=== PATIENT | male | born 1990 | race Caucasian/White ===

== ENCOUNTER 2016-11-04 16:08 | Emergency (ER) | payer SELFPAY ==
--- NOTE | 2016-11-04 16:27 | PDOC ---
History of Present Illness - General Chief Complaint: Pain, Acute Stated Complaint: ABD PAIN Time Seen by Provider: 11/04/16 16:26 History Source: Patient Exam Limitations: No Limitations - History of Present Illness Initial Comments: 11/04/16 17:47 Patient is a 26-year-old male with no past medical history presents to the emergency department today by ambulance with a chief complaint of abdominal pain and vomiting. Patient states that his vomiting started approximately 6 AM this morning. He states that he has been unable to keep anything down today. He tried smoking marijuana to see if it would help his symptoms; however, he was still vomiting after smoking. His last meal was yesterday at dinner time. He ate spaghetti, cereal, and TV dinner chicken lissette russell. He tried taking Zofran and Pepcid today with no relief as they were oral medications. He threw them all back up. He is now complaining of epigastric pain that does not radiate. The pain is made worse every time he takes a deep breath The pain is currently a 10 out of 10. Denies fevers, chills, chest pain, chest tightness, shortness of breath, constipation, diarrhea, recent travel, camping, recent antibiotic use. Past History - Travel Traveled outside of the country in the last 30 days: No Close contact w/someone who was outside of country & ill: No - Past Medical History Allergies/Adverse Reactions: Allergies Allergy/AdvReac Type Severity Reaction Status Date / Time amoxicillin [Amoxicillin] Allergy Intermediate Hives Verified 07/30/14 08:35 erythromycin base Allergy Mild Verified 07/30/14 08:35 [Erythromycin Base] Penicillins Allergy Mild Verified 07/30/14 08:35 Home Medications: Ambulatory Orders Omeprazole [Prilosec (RX)] 20 mg PO DAILY #30 capsule 07/30/14 Other medical history: denies any medical history. - Immunization History Immunization Up to Date: Yes - Psycho/Social/Smoking Cessation Hx Anxiety: No Suicidal Ideation: No Smoking Status: No Smoking History: Current every day smoker Have you smoked in the past 12 months: Yes Number of Cigarettes Smoked Daily: 4 Information on smoking cessation initiated: No 'Breaking Loose' booklet given: 03/22/13 Hx Alcohol Use: No Drug/Substance Use Hx: Yes (weed today) Substance Use Type: None Review of Systems - Review of Systems Constitutional: No: Fever, Malaise, Weakness Respiratory: No: Cough, Shortness of Breath, Wheezing Cardiac (ROS): No: Chest Pain, Lightheadedness, Palpitations, Chest Tightness ABD/GI: Yes: Nausea, Vomiting, Abdominal cramping. No: Constipated, Diarrhea : No: Burning, Dysuria, Frequency, Flank Pain Neurological: No: Headache, Numbness, Paresthesia, Tremors, Weakness All Other Systems: Reviewed and Negative *Physical Exam - Vital Signs Last Vital Signs Temp Pulse Resp BP Pulse Ox 98.6 F 68 18 171/106 95 11/04/16 16:15 11/04/16 16:15 11/04/16 16:15 11/04/16 16:15 11/04/16 16:15 - Physical Exam Comments: 11/04/16 17:50 GENERAL: Well developed, well nourished. AAOx3. Mild distress d/t abdominal pain. Dry- heaving HEENT: Normocephalic, atraumatic. PERRLA, EOMI. No conjunctival pallor. Sclera are non- icteric. Moist mucous membranes. Oropharynx is clear. NECK: Supple. Full ROM. No JVD. Carotid pulses 2+ and symmetric, without bruits. No thyromegaly. No lymphadenopathy. CARDIOVASCULAR: Regular rate and rhythm. No murmurs, rubs, or gallops. Distal pulses are 2+ and symmetric. PULMONARY: No evidence of respiratory distress. Lungs clear to auscultation bilaterally. No wheezing, rales or rhonchi. ABDOMINAL: Diffuse TTP worse at the epigastric region. Soft. Non-distended. No rebound or guarding. No organomegaly. Normoactive bowel sounds. MUSCULOSKELETAL Normal range of motion at all joints. No bony deformities or tenderness. No CVA tenderness. EXTREMITIES: No cyanosis. No clubbing. No edema. No calf tenderness. SKIN: Warm and dry. Normal capillary refill. No rashes. No jaundice. NEUROLOGICAL: Alert, awake, appropriate. Cranial nerves 2-12 intact. No deficits to light touch and temperature in face, upper extremities and lower extremities. No motor deficits in the in face, upper extremities and lower extremities. Normoreflexic in the upper and lower extremities. Normal speech. Toes are down- going bilaterally. Gait is normal without ataxia. PSYCHIATRIC: Cooperative. Good eye contact. Appropriate mood and affect. ED Treatment Course - LABORATORY CBC & Chemistry Diagram: 11/04/16 17:00 11/04/16 17:00 Medical Decision Making - Medical Decision Making 11/04/16 17:52 Patient is a 26-year-old male with no past medical history presents to the emergency department today by ambulance with a chief complaint of abdominal pain and vomiting. Differential diagnosis includes but not limited to cyclic vomiting due to marijuana use, viral illness, gallstones/cholecystitis, or pancreatitis. 1.CBC, CMP, PT/INR, lipase cardiac labs, UA 2.EKG 3. IV fluids, IV Zofran, IV Pepcid, morphine IV 4.reevaluate 11/04/16 17:59 Patient is still complaining of nausea will add 10 mg of Reglan at this time. Reevaluate 11/04/16 18:26 Pt. still complaining of pain. Will give IV toradol at this time. 11/04/16 18:47 Pt. still complaining of some pain and nausea. WBC is elevated to 13, however given in the setting of vomiting since early this morning and lack of focal tenderness, most likely elevated d/t cyclical vomiting. Will try Ativan at this time. Family is requesting CT scan at this time. Discussed how his lab work is normal and how the pain is probably related to the vomiting. Pt. has never had a CT scan. Will order scan at this time. 11/04/16 19:00 Sign out given to Valeria Yanez FOIL CUTTER. Will follow Scan and PO trial
[2016-11-04 16:30] VITALS: BMI 26.6
[2016-11-04] MEDS ORDERED: morphine CARPU-JECT 4 MG/1 ML DISP.SYRIN IVPUSH ONE (16:34)
[2016-11-04] MEDS ORDERED: SODIUM CHLORIDE 1,000 ML IV STA (16:34)
[2016-11-04] MEDS ORDERED: ONDANSETRON 4 MG/2 ML VIAL IVPUSH ONE (16:34)
[2016-11-04] MEDS ORDERED: FAMOTIDINE 20 MG/50 ML IVPB 50 ML IVPB ONE ×2 (16:35→16:41)
[2016-11-04] MEDS ORDERED: ONDANSETRON 4 MG/2 ML VIAL ONE (16:40)
[2016-11-04] MEDS ORDERED: morphine CARPU-JECT 4 MG/1 ML DISP.SYRIN ONE (16:40)
[2016-11-04 17:05] LABS: MCH 27.5 pg (25.7-33.7); MCHC 33.2 g/dl (32.0-35.9); MEAN CELL VOLUME 82.7 fl (80-96); MEAN PLT VOLUME 9.6 fl (7.5-11.1); NEUTROPHILS 88.8 % (42.8-82.8); PLATELET COUNT 260 K/MM3 (134-434)
[2016-11-04] MEDS ORDERED: METOCLOPRAMIDE HCL INJECTION 10 MG/2 ML VIAL IVPUSH ONE (17:15)
[2016-11-04] MEDS ORDERED: METOCLOPRAMIDE HCL INJECTION 10 MG/2 ML VIAL ONE (17:16)
[2016-11-04 17:37] LABS: ALBUMIN 4.9 g/dl (3.4-5.0); ALK PHOS 83 U/L (45-117); ANION GAP 10 (8-16); CALCIUM 10.1 mg/dL (8.5-10.1); CO2 23 mmol/L (21-32); CPK 194 IU/L (39-308); CREATININE 0.8 mg/dL (0.7-1.3); GLUCOSE,RANDOM 113 mg/dL (74-106); SGOT/AST 17 U/L (15-37); SGPT/ALT 24 U/L (12-78); TOT PROT 8.4 g/dl (6.4-8.2)
[2016-11-04 17:38] LABS: TROPONIN I < 0.02 ng/ml (0.00-0.05)
[2016-11-04 17:43] LABS: INR 1.07 (0.82-1.09); PROTHROMBIN TIME (PATIENT) 11.8 SEC (9.98-11.88)
[2016-11-04 18:00] VITALS: TEMP 98
[2016-11-04] MEDS ORDERED: KETOROLAC TROMETHAMINE 30 MG/1 ML VIAL IVPUSH ONE (18:08)
[2016-11-04] MEDS ORDERED: KETOROLAC TROMETHAMINE 30 MG/1 ML VIAL ONE (18:09)
[2016-11-04] MEDS ORDERED: LORazepam 2 MG/ML SDV VIAL ONE (18:48)
--- NOTE | 2016-11-04 19:38 | PDOC ---
*Physical Exam - Vital Signs Last Vital Signs Temp Pulse Resp BP Pulse Ox 98.0 F 58 L 18 161/87 98 11/04/16 18:00 11/04/16 18:00 11/04/16 18:00 11/04/16 18:00 11/04/16 18:00 - Physical Exam Comments: 11/04/16 19:37 Sign-out received from outgoing ER provider Katharina. Pt interviewed and examined. Ancillary studies reviewed. Awaiting CT scan to r/o acute abdomen. 11/04/16 20:[address] Patient will be discharged to home per Dr. Martin. ED Treatment Course - LABORATORY CBC & Chemistry Diagram: 11/04/16 17:00 11/04/16 17:00 - ADDITIONAL ORDERS Additional order review: Laboratory Results 11/04/16 11/04/16 11/04/16 17:00 17:00 17:00 INR Sodium 138 Potassium 3.7 Chloride 105 Carbon Dioxide 23 Anion Gap 10 BUN 11 Creatinine 0.8 Creat Clearance w eGFR > 60 Random Glucose 113 H Calcium 10.1 Total Bilirubin 1.0 D AST 17 ALT 24 D Alkaline Phosphatase 83 Creatine Kinase 194 Creatine Kinase Index 0.5 CK-MB (CK-2) < 1.000 Troponin I < 0.02 Total Protein 8.4 H Albumin 4.9 D Lipase 84 11/04/16 17:00 INR 1.07 Sodium Potassium Chloride Carbon Dioxide Anion Gap BUN Creatinine Creat Clearance w eGFR Random Glucose Calcium Total Bilirubin AST ALT Alkaline Phosphatase Creatine Kinase Creatine Kinase Index CK-MB (CK-2) Troponin I Total Protein Albumin Lipase 11/04/16 17:00 RBC 5.38 MCV 82.7 MCHC 33.2 RDW 14.0 MPV 9.6 Neutrophils % 88.8 H D Lymphocytes % 7.5 L D Monocytes % 2.7 L Eosinophils % 0.0 D Basophils % 1.0 - Medications Given in the ED: ED Medications Discontinued Medications Generic Name Dose Route Start Last Admin Trade Name Freq PRN Reason Stop Dose Admin Famotidine/Sodium Chloride 50 mls @ 100 mls/hr 11/04/16 16:35 11/04/16 16:39 Pepcid 20 Mg Premixed Ivpb - IVPB 11/04/16 17:04 100 mls/hr ONCE ONE Administration Sodium Chloride 1,000 mls @ 1,000 mls/hr 11/04/16 16:34 11/04/16 16:39 Normal Saline - IV 11/04/16 17:33 1,000 mls/hr ASDIR STA Administration Ketorolac Tromethamine 30 mg 11/04/16 18:08 11/04/16 18:10 Toradol Injection - IVPUSH 11/04/16 18:09 30 mg ONCE ONE Administration Lorazepam 2 mg 11/04/16 18:44 11/04/16 18:47 Ativan Injection - IVPUSH 11/04/16 18:45 2 mg ONCE ONE Administration Metoclopramide HCl 10 mg 11/04/16 17:15 11/04/16 17:16 Reglan Injection - IVPUSH 11/04/16 17:16 10 mg ONCE ONE Administration Morphine Sulfate 4 mg 11/04/16 16:34 11/04/16 16:39 Morphine Injection - IVPUSH 11/04/16 16:35 4 mg ONCE ONE Administration Ondansetron HCl 4 mg 11/04/16 16:34 11/04/16 16:39 Zofran Injection IVPUSH 11/04/16 16:35 4 mg ONCE ONE Administration *DC/Admit/Observation/Transfer Diagnosis at time of Disposition: Hyperemesis - Referrals Referrals: Vicente Post MD [Staff Physician] - - Patient Instructions Printed Discharge Instructions: Gastritis Additional Instructions: follow up with gastroeneterology , call Dr Post, see referral for phone number . return for persistant vomiting worsening pain or any concerns. you should avoid daily THC use.
[2016-11-04 19:39] VITALS: BP 141/62; PULSE 60
--- NOTE | 2016-11-04 19:57 | PDOC ---
*Physical Exam - Vital Signs Last Vital Signs Temp Pulse Resp BP Pulse Ox 98.0 F 60 17 141/62 100 11/04/16 18:00 11/04/16 19:38 11/04/16 19:38 11/04/16 19:38 11/04/16 19:38 - Physical Exam General Appearance: Yes: Nourished, Appropriately Dressed Neck: positive: Trachea midline Respiratory/Chest: positive: Chest Tender, Lungs Clear, Normal Breath Sounds Cardiovascular: positive: Regular Rhythm, Regular Rate, S1, S2. negative: Edema Gastrointestinal/Abdominal: positive: Normal Bowel Sounds, Flat, Soft. negative : Tender Musculoskeletal: positive: Normal Inspection. negative: CVA Tenderness Extremity: positive: Normal Capillary Refill Integumentary: positive: Normal Color, Dry, Warm Neurologic: positive: Fully Oriented, Alert, Normal Mood/Affect. 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 NML intact Heart Score/ECG Review #1 General ECG Interpretation: Sinus Rhythm, Normal Rate (51 incomplete RBBB), Normal Intervals, No acute ischemic changes - ECG Intrepretation Comment:: 11/04/16 20:08 RBBB, old comparison 07/26/14 ED Treatment Course - LABORATORY CBC & Chemistry Diagram: 11/04/16 17:00 11/04/16 17:00 - ADDITIONAL ORDERS Additional order review: Laboratory Results 11/04/16 11/04/16 11/04/16 17:00 17:00 17:00 INR Sodium 138 Potassium 3.7 Chloride 105 Carbon Dioxide 23 Anion Gap 10 BUN 11 Creatinine 0.8 Creat Clearance w eGFR > 60 Random Glucose 113 H Calcium 10.1 Total Bilirubin 1.0 D AST 17 ALT 24 D Alkaline Phosphatase 83 Creatine Kinase 194 Creatine Kinase Index 0.5 CK-MB (CK-2) < 1.000 Troponin I < 0.02 Total Protein 8.4 H Albumin 4.9 D Lipase 84 11/04/16 17:00 INR 1.07 Sodium Potassium Chloride Carbon Dioxide Anion Gap BUN Creatinine Creat Clearance w eGFR Random Glucose Calcium Total Bilirubin AST ALT Alkaline Phosphatase Creatine Kinase Creatine Kinase Index CK-MB (CK-2) Troponin I Total Protein Albumin Lipase 11/04/16 17:00 RBC 5.38 MCV 82.7 MCHC 33.2 RDW 14.0 MPV 9.6 Neutrophils % 88.8 H D Lymphocytes % 7.5 L D Monocytes % 2.7 L Eosinophils % 0.0 D Basophils % 1.0 - RADIOLOGY Radiology Studies Ordered: Category Date Time Status ABDOMEN & PELVIS CT WITH CONTR [CT] Stat CT Scan 11/04/16 19:09 Ordered - Medications Given in the ED: ED Medications Discontinued Medications Generic Name Dose Route Start Last Admin Trade Name Frejonelle PRN Reason Stop Dose Admin Famotidine/Sodium Chloride 50 mls @ 100 mls/hr 11/04/16 16:35 11/04/16 16:39 Pepcid 20 Mg Premixed Ivpb - IVPB 11/04/16 17:04 100 mls/hr ONCE ONE Administration Sodium Chloride 1,000 mls @ 1,000 mls/hr 11/04/16 16:34 11/04/16 16:39 Normal Saline - IV 11/04/16 17:33 1,000 mls/hr ASDIR STA Administration Ketorolac Tromethamine 30 mg 11/04/16 18:08 11/04/16 18:10 Toradol Injection - IVPUSH 11/04/16 18:09 30 mg ONCE ONE Administration Lorazepam 2 mg 11/04/16 18:44 11/04/16 18:47 Ativan Injection - IVPUSH 11/04/16 18:45 2 mg ONCE ONE Administration Metoclopramide HCl 10 mg 11/04/16 17:15 11/04/16 17:16 Reglan Injection - IVPUSH 11/04/16 17:16 10 mg ONCE ONE Administration Morphine Sulfate 4 mg 11/04/16 16:34 11/04/16 16:39 Morphine Injection - IVPUSH 11/04/16 16:35 4 mg ONCE ONE Administration Ondansetron HCl 4 mg 11/04/16 16:34 11/04/16 16:39 Zofran Injection IVPUSH 11/04/16 16:35 4 mg ONCE ONE Administration Medical Decision Making - Medical Decision Making 11/04/16 19:50 26 yo M with h/o emesis, multiple episodes today, h/o THC abuse ( daily) . was seen in conjunction with andrea Posadas, no f/c no sick contacts. states pain is upper abdomen. no other complaints. on exam pt resting comfortably. lungs clear heart regular. abd soft NT ND. ext wwp. no edema. plan : was to perform bedside us RUQ r/o cholelihtiaiss, lipase r/o pancreatitis , labs renal ultrasound. treat pain and antiemetics, antacid. reasess. 11/04/16 20:04 focused ED ultrasound RUQ, no stones, no wall edema. no wall thickening, negative sonographic marshall's CBD 3.5mm mm wall 1.8mm impression: normal gallbladder bilatera renal ultrasound performed no hydronephrosis, bladder full. impression: normal renal ultrasound. 11/04/16 20:09 pt feels improved. tolerate po drank some water. ginoenlty would not like to have CT scan. encouraged to return for worsening symtpoms. given GI referral and recommend prilosec or pepcid. extensive discussion with pt and pt family regarding concerns and followup. *DC/Admit/Observation/Transfer Diagnosis at time of Disposition: Hyperemesis - Discharge Dispostion Admit: No - Referrals Referrals: Vicente Post MD [Staff Physician] - - Patient Instructions Printed Discharge Instructions: Gastritis Additional Instructions: follow up with gastroeneterology , call Dr Post, see referral for phone number . return for persistant vomiting worsening pain or any concerns. you should avoid daily THC use.
--- NOTE | 2016-11-05 14:56 | EKG ---
Test Reason : Blood Pressure : / mmHG Vent. Rate : 051 BPM Atrial Rate : 051 BPM P-R Int : 130 ms QRS Dur : 110 ms QT Int : 430 ms P-R-T Axes : 055 064 062 degrees QTc Int : 396 ms SINUS BRADYCARDIA WITH SINUS ARRHYTHMIA INCOMPLETE RIGHT BUNDLE BRANCH BLOCK BORDERLINE ECG WHEN COMPARED WITH ECG OF 26-JUL-2014 19:46, NO SIGNIFICANT CHANGE WAS FOUND Confirmed by ILIR PATEL MD ([id number]) on 11/05/2016 2:55:31 PM Referred By: Confirmed By:ILIR PATEL MD
== END 2016-11-04 20:11 ==
LOC: JER 16:08
CPT/HCPCS: 36415; 80053; 82553; 83690; 84484; 85025; 85610; 93005; 93010; 99283-25

== ENCOUNTER 2016-12-25 23:49 | Emergency (ER) | payer OTHER ==
[2016-12-26 00:03] VITALS: BP 125/78; PULSE 86; TEMP 98.1; BMI 25.0
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
[2016-12-26] MEDS ORDERED: IBUPROFEN 600 MG TABLET (FP) PO ONE ×2 (04:12→04:19)
[2016-12-26] MEDS ORDERED: DIPHTH,PERTUSS(ACELL),TET 0.5 ML DISP.SYRIN IM ONE (04:15)
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
== END 2016-12-26 04:28 | disposition home or self-care (01) ==
LOC: JER 23:49
PROC: 3E0234Z Introduction of Serum, Toxoid and Vaccine into Muscle, Percutaneous Approach (ICD-10-PCS; principal; 2016-12-25)
DX: Z04.1 Encounter for examination and observation following transport accident (principal); G50.1 Atypical facial pain; M25.512 Pain in left shoulder; Z88.0 Allergy status to penicillin; Z88.1 Allergy status to other antibiotic agents
CPT/HCPCS: 70450-TC; 70486-TC; 71010-TC; 72125-TC; 73030-TC-LT; 99281-25

== ENCOUNTER 2016-12-28 20:12 | Emergency (ER) | payer OTHER ==
[2016-12-28 20:30] VITALS: BP 126/82; PULSE 56; TEMP 97.8; BMI 26.3
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
== END 2016-12-28 21:36 | disposition home or self-care (01) ==
LOC: SUPCPDRO 20:12 → JER 20:12
DX: R53.83 Other fatigue (principal); F17.210 Nicotine dependence, cigarettes, uncomplicated
CPT/HCPCS: 99281-25

== ENCOUNTER 2018-03-07 12:03 | Emergency (ER) | payer SELFPAY ==
[2018-03-07 12:13] VITALS: BMI 23.3
[2018-03-07] MEDS ORDERED: ACETAMINOPHEN 1000 MG/100 ML VIAL (NON FORMULARY) IVPB ONE (13:13)
[2018-03-07] MEDS ORDERED: PANTOPRAZOLE SODIUM 40 MG VIAL IVPUSH ONE (13:13)
--- NOTE | 2018-03-07 13:13 | PDOC ---
History of Present Illness - General Chief Complaint: Pain, Acute Stated Complaint: ABD PAIN Time Seen by Provider: 03/07/18 12:53 History Source: Patient, Spouse - History of Present Illness Travel History: No Initial Comments: 03/07/18 13:10 Patient is a 27 year old male with a PMHx of Gastritis (On H.Pylori Regimen) who was sent over by his PCP, Dr. Spencer due to severe abdominal pain since last week (03/04/18) associated with nausea and vomiting. Patient's reports on Wednesday (03/04) he went to [facility] and had sesame chicken. Afterwards, he went to his mothers house and started experiencing nausea and innumerable nonbloody nonbilious vomiting. Patient reports his last bowel movement was on (03/03). Patient describes the pain as epigastric, "severe," constant and nonradiating with a severity of 10/10. Otherwise, patient denies shortness of breath, chest pain, palpitations, diarrhea, constipation, loss of consciousness. Patient denies any NSAID use Patient denies any melena, hematochezia, hematemesis, hematuria, jaundice, autoimmune disorder, hepatitis. Patient has never seen a GI and denies any history of colonoscopy or EGD PMHx: Gastritis H.Pylori PSHx: Denies Social Hx: Lives with Denies alcohol use Denies drugs use Reports 5 cigarettes/ day Family Hx: Mother- Gastritis and HTN Allergies: Penicillins Erythromycin Past History - Travel Traveled outside of the country in the last 30 days: No Close contact w/someone who was outside of country & ill: No - Past Medical History Allergies/Adverse Reactions: Allergies Allergy/AdvReac Type Severity Reaction Status Date / Time amoxicillin [Amoxicillin] Allergy Intermediate Hives Verified 03/07/18 12:09 erythromycin base Allergy Mild Verified 03/07/18 12:09 [Erythromycin Base] Penicillins Allergy Mild Verified 03/07/18 12:09 Home Medications: Ambulatory Orders Famotidine [Pepcid -] 20 mg PO BID #30 tablet 03/07/18 Ondansetron [Zofran -] 4 mg PO DAILY PRN #10 tablet 03/07/18 Pantoprazole Sodium [Protonix -] 20 mg PO DAILY #7 tablet.ec 03/07/18 COPD: No GI Disorders: Yes - Immunization History Immunization Up to Date: Yes - Suicide/Smoking/Psychosocial Hx Smoking Status: No Smoking History: Current every day smoker Have you smoked in the past 12 months: Yes Number of Cigarettes Smoked Daily: 5 Information on smoking cessation initiated: No 'Breaking Loose' booklet given: 03/22/13 Hx Alcohol Use: No Drug/Substance Use Hx: No Substance Use Type: None Review of Systems - Review of Systems Able to Perform ROS?: Yes Is the patient limited Mongolian proficient: No Constitutional: No: Chills, Diaphoresis, Fever, Night Sweats, Weakness HEENTM: No: Nose Congestion Respiratory: No: Cough, Orthopnea, Shortness of Breath, SOB with Exertion, SOB at Rest, Wheezing, Productive cough, Hemoptysis Cardiac (ROS): No: Chest Pain, Edema, Irregular Heart Rate, Lightheadedness, Palpitations, Syncope, Chest Tightness ABD/GI: Yes: Constipated, Nausea, Vomiting, Other (Epigastric pain ) : No: Burning, Dysuria, Discharge, Flank Pain, Hematuria Musculoskeletal: No: Back Pain, Joint Pain Integumentary: No: Bruising, Dryness, Erythema Neurological: No: Numbness, Paresthesia, Seizure, Tingling, Tremors Psychiatric: No: Anxiety, Depression Endocrine: No: Flushing, Intolerance to Cold, Intolerance to Heat Hematologic/Lymphatic: No: Anemia, Easy Bruising, Bleeding Diathesis *Physical Exam - Vital Signs Last Vital Signs Temp Pulse Resp BP Pulse Ox 97.9 F 70 16 167/103 H 99 03/07/18 12:12 03/07/18 12:12 03/07/18 12:12 03/07/18 12:12 03/07/18 12:12 - Physical Exam General Appearance: Yes: Mild Distress (awak, alert, oriented x3 ) HEENT: positive: CRISTELA, Other (Dry mucous membranes ). negative: Pharyngeal Erythema, Tonsillar Exudate, Tonsillar Erythema, Rhinorrhea, Thrush Neck: positive: Trachea midline, Supple. negative: Lymphadenopathy (R), Lymphadenopathy (L) Respiratory/Chest: positive: Lungs Clear, Normal Breath Sounds. negative: Crackles, Rales, Rhonchi, Stridor, Wheezing Cardiovascular: positive: Regular Rhythm, Regular Rate. negative: Edema, JVD, Murmur Gastrointestinal/Abdominal: positive: Normal Bowel Sounds, Tender, Soft, Tenderness (upon palpation of epigastric region), Other ((-) Psoas sign, (-) obturator sign, (-) Rovsing's sign, (-) Garwood sign). negative: Distended, Guarding, Rebound, Hepatomegaly, Spleenomegaly Musculoskeletal: positive: Normal Inspection. negative: CVA Tenderness, CVA Tenderness (R), CVA Tenderness (L) Extremity: positive: Normal Capillary Refill, Normal Inspection, Normal Range of Motion. 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 Due to risk factors of gastritis, h.pylori, and initial symptoms after eating tajik food, differential Diagnosis include but not limited to gastroenteritis, gastritis, pancreatitis, obstruction. -CBC, CMP ,LACTIC ordered -Morphine 4mg -Pepcid and protonix -1L IV fluids 03/07/18 15:10 -Patients lab show Mild hyperkalemia and AST of 44 -Patient is sleeping comfortably and in no acute distress -Will hydrate with another 1L IV NS -Due to normal level lactic and no WBC, fevers, tachycardia or guarding. Will likely discharge patient home to follow up with PCP. 03/07/18 16:04 -Patient reports pain is much improved but still has nausea -Zofran 4mg IVP ordered and 1L of NS 03/07/18 16:32 -Patient reports improvement in pain and nausea after medication -Will discharge patient home to follow up with PCP and GI referral -Will prescribe Zofran, Pepcid, and protonix -Explained to patient that he should avoid dairy and spicy food. -Patient stable to go home *DC/Admit/Observation/Transfer Diagnosis at time of Disposition: Gastroenteritis Gastritis Qualifiers: Gastritis type: unspecified gastritis Chronicity: chronic Gastritis bleeding: without bleeding Qualified Code(s): K29.50 - Unspecified chronic gastritis without bleeding Hyperemesis Qualifiers: Vomiting type: unspecified Nausea presence: with nausea Qualified Code(s): R11.2 - Nausea with vomiting, unspecified - Discharge Dispostion Disposition: HOME Condition at time of disposition: Stable Decision to Admit order: No - Prescriptions Prescriptions: Famotidine [Pepcid -] 20 mg PO BID #30 tablet Ondansetron [Zofran -] 4 mg PO DAILY PRN #10 tablet PRN Reason: Nausea And/Or Vomiting Pantoprazole Sodium [Protonix -] 20 mg PO DAILY #7 tablet.ec - Referrals Referrals: Shekhar Sellers MD [Primary Care Provider] - Ric Varela DO [Staff Physician] - - Patient Instructions Additional Instructions: INSTRUCTIONS: You were seen in the ED for abdominal pain and vomiting. Labs were done and essentially unremarkable. You likely have infection of inflammation the abdomen for which you started antibiotics yesterday. You will need to continue taking these antibiotics prescribed to you by your primary care physician Please avoid and NSAID's such as motrin, aleve, or advil. If you experience pain, take Tylenol over the counter Avoid dairy for now as it may worsen your abdominal pain MEDICATIONS: -I will be prescribing you Pepcid and you should take it twice a day for two weeks to help with the abdominal pain -I will also prescribe you Protonix to take once a day for the abdominal pain -I will also prescribe Zofran to take for the nausea -Please continue taking your antibiotics prescribed to you by Dr. Spencer FOLLOW UPS: -Please follow up with your PCP this week -I will be referring you to a State Manager to further investigate your abdominal pain - Post Discharge Activity
[2018-03-07] MEDS ORDERED: PANTOPRAZOLE SODIUM 40 MG/100 ML BAG IVPB ONE (13:15)
[2018-03-07] MEDS ORDERED: ACETAMINOPHEN INJECTION 100 ML IVPB ONE (13:15)
[2018-03-07 13:16] LABS: BASO % 0.5 % (0-2.0); HEMATOCRIT 44.3 % (35.4-49); HEMOGLOBIN 15.4 GM/dL (11.7-16.9); LYMPH % 10.4 % (8-40); MCH 28.8 pg (25.7-33.7); MCHC 34.8 g/dl (32.0-35.9); MEAN CELL VOLUME 82.7 fl (80-96); MEAN PLT VOLUME 9.6 fl (7.5-11.1); MONO % 4.6 % (3.8-10.2); NEUT % 84.5 % (42.8-82.8); PLATELET COUNT 257 K/MM3 (134-434); RBC 5.36 M/mm3 (4.00-5.60); RDW 14.1 % (11.9-15.9); WHITE BLOOD COUNT 11.1 K/mm3 (4.0-10.0)
[2018-03-07] MEDS ORDERED: ONDANSETRON 4 MG/2 ML VIAL IVPUSH ONE ×2 (13:22→16:02)
[2018-03-07] MEDS ORDERED: morphine CARPU-JECT 4 MG/1 ML DISP.SYRIN IVPUSH ONE (13:22)
[2018-03-07] MEDS ORDERED: FAMOTIDINE 20 MG/50 ML IVPB 20 MG/50 ML MG IVPB ONE ×2 (13:22→13:29)
[2018-03-07] MEDS ORDERED: morphine SULFATE 4 MG/ML VIAL ONE (13:29)
[2018-03-07] MEDS ORDERED: ONDANSETRON 4 MG/2 ML VIAL ONE ×2 (13:41→16:15)
[2018-03-07 13:46] LABS: ALBUMIN 4.4 g/dl (3.4-5.0); ALK PHOS 67 U/L (45-117); ANION GAP 7 MMOL/L (8-16); BILIRUBIN,TOTAL 0.9 mg/dL (0.2-1); BLOOD UREA NITROGEN 16 mg/dL (7-18); CALCIUM 8.8 mg/dL (8.5-10.1); CHLORIDE 104 mmol/L (98-107); CO2 22 mmol/L (21-32); CREATININE 0.9 mg/dL (0.55-1.3); GLUCOSE,RANDOM 95 mg/dL (74-106); LIPASE 113 U/L (73-393); POTASSIUM 5.4 mmol/L (3.5-5.1); SGOT/AST 44 U/L (15-37); SGPT/ALT 24 U/L (13-61); SODIUM 133 mmol/L (136-145)
[2018-03-07 14:12] LABS: INR 1.07 (0.83-1.09); PROTHROMBIN TIME (PATIENT) 12.6 SEC (9.7-13.0)
[2018-03-07 14:15] LABS: ACTIVATED PTT 29.2 SECONDS (25.2-36.5)
--- NOTE | 2018-03-07 15:20 | PDOC ---
Attending Attestation - Resident Resident Name: Deb Swenson - ED Attending Attestation I have performed the following: I have examined & evaluated the patient, The case was reviewed & discussed with the resident, I agree w/resident's findings & plan - HPI HPI: 03/07/18 15:16 Healthy 27-year-old male with history of H. pylori diagnosed on endoscopy this year, status post treatment with presumably Prevpac for 3 weeks presents now with 3-4 days of worsening epigastric pain with intractable nausea/vomiting, nonbloody nonbilious and with otherwise normal bowel movements and no melena or bright red blood per rectum. No fevers or chills, no recent travel or antibiotics, the patient did have a large amount of dairy on Wednesday with some wine, also ate some Malay food but other members of the dinner are not ill. Denies any excessive NSAID use, excessive alcohol use, denies drugs/marijuana, does smoke cigarettes - Physicial Exam PE: 03/07/18 15:18 Vital signs within normal limits, afebrile Alert, in moderate distress secondary to abdominal pain, dry mucosa but no jaundice or pallor Heart is regular, lungs are clear Abdomen is soft/nondistended. Epigastric discomfort to palpation without guarding or rebound. No edema or rash - Medical Decision Making 03/07/18 15:19 Healthy 27-year-old male with history of H. pylori presents with epigastric pain and intractable vomiting, hemodynamically stable without peritoneal findings on examination. No evidence of bleeding, hesitation seems most consistent with gastritis, rule out biliary or pancreatic etiology. Labs EKG IV fluids, antiemetics, antacids Reassess 03/07/18 16:28 labs wnl, improved after meds, abd remains benign. antacid course, diet modification, GI f/u. understands return precautions Heart Score/ECG Review #1 ECG reviewed & interpreted by me at: 14:24 General ECG Interpretation: Sinus Rhythm, Normal Rate (55), Normal Intervals ( qtc 388, irbbb qrs 98), No acute ischemic changes
--- NOTE | 2018-03-07 15:39 | EKG ---
Test Reason : Blood Pressure : / mmHG Vent. Rate : 055 BPM Atrial Rate : 055 BPM P-R Int : 130 ms QRS Dur : 098 ms QT Int : 406 ms P-R-T Axes : 052 062 068 degrees QTc Int : 388 ms SINUS BRADYCARDIA INCOMPLETE RIGHT BUNDLE BRANCH BLOCK BORDERLINE ECG WHEN COMPARED WITH ECG OF 04-NOV-2016 16:44, NO SIGNIFICANT CHANGE WAS FOUND Confirmed by JON BOONE MD ([id number]) on 03/07/2018 3:38:53 PM Referred By: Confirmed By:JON BOONE MD
[2018-03-07] MEDS ORDERED: SODIUM CHLORIDE 1,000 ML IV STA (16:02)
[2018-03-07 17:35] VITALS: BP 145/78; PULSE 78; TEMP 98.7
== END 2018-03-07 17:35 | disposition home or self-care (01) ==
LOC: JER 12:03
PROC: 3E033NZ Introduction of Analgesics, Hypnotics, Sedatives into Peripheral Vein, Percutaneous Approach (ICD-10-PCS; principal; 2018-03-07)
PROC: 3E033GC Introduction of Other Therapeutic Substance into Peripheral Vein, Percutaneous Approach (ICD-10-PCS; 2018-03-07)
PROC: 3E0337Z Introduction of Electrolytic and Water Balance Substance into Peripheral Vein, Percutaneous Approach (ICD-10-PCS; 2018-03-07)
DX: K29.50 Unspecified chronic gastritis without bleeding (principal); R11.2 Nausea with vomiting, unspecified
CPT/HCPCS: 36415; 80053; 83605; 83690; 85025; 85610; 85730; 87040; 93005; 93010; 99283-25; J0131; J7030

== ENCOUNTER 2019-05-27 13:51 | Emergency (ER) | payer OTHER ==
[2019-05-27 14:01] VITALS: BP 121/64; PULSE 69; TEMP 97.9; BMI 25.8
[2019-05-27] MEDS ORDERED: IBUPROFEN 400 MG TABLET (FP) PO ONE ×2 (14:46→14:48)
--- NOTE | 2019-05-27 14:52 | PDOC ---
History of Present Illness - General Chief Complaint: Injury Stated Complaint: INJURY Time Seen by Provider: 05/27/19 14:04 History Source: Patient Exam Limitations: Clinical Condition - History of Present Illness Initial Comments: 05/27/19 14:54 Patient with no significant past medical history present with complaint of left ankle and proximal foot pain status post being run over by a forklift tire while at work today. 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 Patient reported increased pain with ambulation. Patient did not take anything for pain. Denies previous injury to ankle or foot Occurred: reports: just prior to arrival Past History - Past Medical History Allergies/Adverse Reactions: Allergies Allergy/AdvReac Type Severity Reaction Status Date / Time amoxicillin [Amoxicillin] Allergy Intermediate Hives Verified 05/27/19 13:56 erythromycin base Allergy Mild Verified 05/27/19 13:56 [Erythromycin Base] Penicillins Allergy Mild Verified 05/27/19 13:56 Home Medications: Ambulatory Orders Famotidine [Pepcid -] 20 mg PO DAILY #30 tablet 03/07/18 Ondansetron [Zofran -] 4 mg PO DAILY PRN #14 tablet 03/07/18 Pantoprazole Sodium [Protonix -] 20 mg PO DAILY #14 tablet.ec 03/07/18 Ibuprofen 800 mg PO Q8H PRN #20 tablet 05/27/19 COPD: No GI Disorders: Yes - Immunization History Immunization Up to Date: Yes - Psycho Social/Smoking Cessation Hx Smoking Status: No Smoking History: Never smoked Have you smoked in the past 12 months: No Number of Cigarettes Smoked Daily: 5 Information on smoking cessation initiated: No 'Breaking Loose' booklet given: 03/22/13 Hx Alcohol Use: No Drug/Substance Use Hx: No Substance Use Type: None Review of Systems - Review of Systems Able to Perform ROS?: Yes Is the patient limited Ni[place]an proficient: No Constitutional: No: Chills, Fever, Other HEENTM: No: Symptoms Reported, See HPI, Eye Pain, Blurred Vision, Tearing, Recent change in vision, Double Vision, Cataracts, Ear Pain, Ocular Prothesis, Ear Discharge, Nose Pain, Nose Congestion, Tinnitus, Nose Bleeding, Hearing Loss, Throat Pain, Throat Swelling, Mouth Pain, Dental Problems, Difficulty Swallowing, Mouth Swelling, Other Respiratory: No: Symptoms reported Cardiac (ROS): No: Symptoms Reported ABD/GI: No: Symptoms Reported, Vomiting Musculoskeletal: Yes: Symptoms Reported, See HPI, Joint Pain (left ankle pain), Joint Swelling (left ankle), Muscle Pain (left ankle pain) Integumentary: Yes: Symptoms Reported, See HPI, Pruritus, Other (swelling to left ankle) All Other Systems: Reviewed and Negative *Physical Exam - Vital Signs Last Vital Signs Temp Pulse Resp BP Pulse Ox 97.9 F 69 18 121/64 73 L 05/27/19 13:56 05/27/19 13:56 05/27/19 13:56 05/27/19 13:56 05/27/19 13:56 - Physical Exam 05/27/19 14:50 GENERAL: Well developed, well nourished. Awake and alert in moderate acute distress. PULMONARY: No evidence of respiratory distress. MUSCULOSKELETAL : Moderate tenderness to lateral, dorsum and posterior aspect of left ankle and foot. Mild localized swelling over lateral aspect of proximal left foot. No visible deformity. Negative anterior posterior drawer test of left ankle SKIN: Warm and dry. Normal capillary refill. Mild localized swelling to lateral aspect of proximal left foot. NEUROLOGICAL: Alert, awake, appropriate. No motor deficits in the lower extremities. PSYCHIATRIC: Cooperative. Good eye contact. Appropriate mood and affect. General Appearance: Yes: Nourished, Appropriately Dressed, Apparent Distress, Moderate Distress ED Treatment Course - RADIOLOGY Radiology Studies Ordered: Category Date Time Status ANKLE & FOOT-LEFT* [RAD] Stat Radiology 05/27/19 14:18 Ordered Medical Decision Making - Medical Decision Making 05/27/19 14:59 Patient with no significant past medical history present with complaint of left ankle and proximal foot pain status post being run over by a forklift tire while at work today. 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 Patient reported increased pain with ambulation. Patient did not take anything for pain. Denies previous injury to ankle or foot Exam significant for moderate tenderness to dorsum and proximal aspect of left foot with localized swelling over lateral aspect of proximal left foot with increased pain over Achilles tendon site to posterior left ankle. Negative anterior posterior drawer test of left ankle. No visible deformity. X-ray of left ankle and foot shows no acute fracture or dislocation. Patient s ymptoms likely ankle and foot sprain with contusion. Motrin 800 mg ordered for pain. Patient placing Aircast ankle splint and given postop hard soled shoe. Patient given crutches to keep weight off left foot for the next few days and discharge to take Motrin as needed for pain with orthopedics follow-up Discharge - Discharge Information Problems reviewed: Yes Clinical Impression/Diagnosis: Contusion of left ankle or foot Left ankle pain Qualifiers: Chronicity: acute Qualified Code(s): M25.572 - Pain in left ankle and joints of left foot Condition: Stable Disposition: HOME - Admission No - Additional Discharge Information Prescriptions: Ibuprofen 800 mg PO Q8H PRN #20 tablet PRN Reason: pain - Follow up/Referral Referrals: Roque Baltazar DO [Staff Physician] - - Patient Discharge Instructions Patient Printed Discharge Instructions: DI for Ankle Sprain Additional Instructions: X-ray of left ankle and foot shows no acute fracture or dislocation. Symptoms likely muscle pain with soft tissue swelling. Apply cold compress to do a switch to hot compress tomorrow as needed for swelling and pain. Keep left leg elevated for the next 24 hours. Use provided crutches to keep weight off for t he next 2 days after which you can ambulate as tolerated. Follow-up referred to orthopedics if no improvement in 3 days - Post Discharge Activity Work/Back to School Note: Back to Work
== END 2019-05-27 14:55 | disposition home or self-care (01) ==
LOC: JERFT 13:51 → JER 13:51 → JERFT 14:55
DX: S90.02XA Contusion of left ankle, initial encounter (principal); W31.89XA Contact with other specified machinery, initial encounter; W22.8XXA Striking against or struck by other objects, initial encounter; Y93.89 Activity, other specified; Y92.59 Other trade areas as the place of occurrence of the external cause; Y99.0 Civilian activity done for income or pay; Z88.0 Allergy status to penicillin; Z88.1 Allergy status to other antibiotic agents
CPT/HCPCS: 73610-TC-LT-FY; 73630-TC-LT; 99283-25

== ENCOUNTER 2020-01-30 21:57 | Emergency (ER) | payer SELFPAY ==
[2020-01-30 22:12] VITALS: BP 154/86; BMI 21.7
[2020-01-30] MEDS ORDERED: ONDANSETRON 4 MG/2 ML VIAL IVPB ONE (22:21)
[2020-01-30] MEDS ORDERED: LACTATED RINGERS SOLUTION 1000 ML INFUS.BAG IV STA (22:21)
[2020-01-30] MEDS ORDERED: ACETAMINOPHEN 1000 MG/100 ML VIAL (NON FORMULARY) IVPB ONE (22:26)
[2020-01-30] MEDS ORDERED: FAMOTIDINE 20 MG/50 ML IVPB 20 MG/50 ML MG IVPB ONE (22:26)
[2020-01-30] MEDS ORDERED: ACETAMINOPHEN INJECTION 100 ML IVPB ONE (22:30)
[2020-01-30] MEDS ORDERED: METOCLOPRAMIDE HCL INJECTION 10 MG/2 ML VIAL IVPUSH ONE (23:53)
[2020-01-31] MEDS ORDERED: METOCLOPRAMIDE HCL INJECTION 10 MG/2 ML VIAL ONE (00:05)
[2020-01-31 00:09] LABS: BASO % 0.5 % (0-2.0); EOS % 0.1 % (0-4.5); HEMATOCRIT 42.5 % (35.4-49); HEMOGLOBIN 14.3 GM/dL (11.7-16.9); LYMPH % 12.1 % (8-40); MCH 28.3 pg (25.7-33.7); MCHC 33.6 g/dl (32.0-35.9); MEAN CELL VOLUME 84.2 fl (80-96); MEAN PLT VOLUME 9.2 fl (7.5-11.1); MONO % 3.4 % (3.8-10.2); NEUT % 83.9 % (42.8-82.8); PLATELET COUNT 258 K/MM3 (134-434); RBC 5.05 M/mm3 (4.00-5.60); RDW 13.7 % (11.9-15.9); WHITE BLOOD COUNT 13.4 K/mm3 (4.0-10.0)
[2020-01-31 00:28] LABS: POTASSIUM 4.2 mmol/L (3.5-5.1)
[2020-01-31 00:30] LABS: ALBUMIN 4.6 g/dl (3.4-5.0); CALCIUM 9.6 mg/dL (8.5-10.1)
[2020-01-31 00:31] LABS: BLOOD UREA NITROGEN 9.9 mg/dL (7-18)
[2020-01-31 00:34] LABS: CREATININE 0.8 mg/dL (0.55-1.3)
[2020-01-31 00:35] LABS: BILIRUBIN,TOTAL 0.6 mg/dL (0.2-1); TOT PROT 8.2 g/dl (6.4-8.2)
[2020-01-31 01:00] LABS: URINE APPEARANCE CLOUDY; URINE BILIRUBIN NEGATIVE (NEGATIVE); URINE COLOR YELLOW; URINE GLUCOSE (UA) NEGATIVE (NEGATIVE); URINE KETONE 1+ (NEGATIVE); URINE LEUK ESTERASE NEGATIVE (NEGATIVE); URINE NITRITE NEGATIVE (NEGATIVE); URINE PROTEIN NEGATIVE (NEGATIVE)
[2020-01-31] MEDS ORDERED: morphine CARPU-JECT 4 MG/1 ML DISP.SYRIN IVPUSH ONE (01:52)
[2020-01-31] MEDS ORDERED: SUCRALFATE 1 GM/10 ML UNIT DOSE CUPS PO ONE ×2 (01:53→23:54)
[2020-01-31] MEDS ORDERED: MORPHINE SULFATE 2 MG/ML VIAL ONE (01:56)
[2020-01-31] MEDS ORDERED: SUCRALFATE 1 GM TABLET (FP) ONE (01:59)
[2020-01-31] MEDS ORDERED: SUCRALFATE 1 GM TABLET (FP) PO SCH (01:59)
[2020-01-31 02:32] VITALS: PULSE 83; TEMP 98.3
== END 2020-01-31 02:33 | disposition home or self-care (01) ==
LOC: JER 21:57
PROC: 3E0333Z Introduction of Anti-inflammatory into Peripheral Vein, Percutaneous Approach (ICD-10-PCS; principal; 2020-01-30)
PROC: 3E033GC Introduction of Other Therapeutic Substance into Peripheral Vein, Percutaneous Approach (ICD-10-PCS; 2020-01-30)
PROC: 3E033GC Introduction of Other Therapeutic Substance into Peripheral Vein, Percutaneous Approach (ICD-10-PCS; 2020-01-30)
PROC: 3E033NZ Introduction of Analgesics, Hypnotics, Sedatives into Peripheral Vein, Percutaneous Approach (ICD-10-PCS; 2020-01-30)
DX: R10.9 Unspecified abdominal pain (principal)
CPT/HCPCS: 36415; 71045-TC-FY; 80053; 81003; 83605; 83690; 85025; 93005; 93010; 99285-25; J0131